=== PATIENT | male | born 1965 ===

== ENCOUNTER 2021-02-09 22:38 | Observation (INO) | payer MEDICAID ==
[~2021-02-09] VITALS: Ht 165.1 cm; Wt 109.0 kg
--- NOTE | 2021-02-09 22:54 | NUR ---
PT PRESENTS TO ED FROM [facility]. PT HAD CHEST PAIN AROUND 1200. PT STATES HE TOOK HIS NITRO, AND THAT HELPED. PT STATES HE DRINKS ALCOHOL AND FORGETS TO TAKE HIS MEDS AND HAS CHEST PAIN. PT HAD ELEVATED TROPS AND WAS SENT HERE. PT RESTING ON GURNEY AND PLACED ON CONTINUOUS MONITORING, ERP AT BEDSIDE
[2021-02-09] MEDS ORDERED: SODIUM CHLORIDE FLUSH 10ML SYR IVF ONE (23:00)
[2021-02-09 23:13] LABS: BASOPHILS % (AUTO) 1 % (0-1); EOSINOPHILS % (AUTO) 2 % (1-7); LYMPHOCYTES % (AUTO) 18 % (22-44); MEAN CORPUSCULAR HEMOGLOBIN 34.4 pg (27.5-34.5); MEAN CORPUSCULAR HGB CONC 34.8 g/dL (33.2-36.2); MONOCYTES % (AUTO) 8 % (2-9); NEUTROPHILS % (AUTO) 72 % (42-75); PLATELET COUNT 255 x10^3/uL (130-400); RED BLOOD COUNT 3.44 x10^6/uL (4.38-5.82)
[2021-02-09 23:24] LABS: ALBUMIN 2.6 g/dL (3.4-5.0); ANION GAP 5 mmol/L (5-15); CALCIUM 7.7 mg/dL (8.5-10.1); CHLORIDE 109 mmol/L (98-107); CREATININE 0.64 mg/dL (0.7-1.3)
[2021-02-09 23:27] LABS: TROPONIN I 0.116 ng/mL (0.000-0.045)
[2021-02-10] VITALS (8 sets, daily range): BP systolic 143–185; BP diastolic 68–95
--- NOTE | 2021-02-10 00:03 | NUR ---
PT RESTING ON GURNEY, DENIES NEEDS AT THIS TIME.
[2021-02-10] MEDS ORDERED: NITROGLYCERIN 0.4 MG/SPRAY SL PRN (00:30)
[2021-02-10] MEDS ORDERED: ACETAMINOPHEN 500 MG TABLET PO PRN (00:30)
[2021-02-10] MEDS ORDERED: SODIUM CHLORIDE FLUSH 10ML SYR IVF PRN (00:30)
[2021-02-10] MEDS ORDERED: morphine SULFATE 10 MG/ML, 1ML IV PRN (00:30)
[2021-02-10] MEDS ORDERED: morphine SULFATE 10 MG/ML, 1ML IVPush PRN (00:30)
[2021-02-10] MEDS ORDERED: ONDANSETRON 2MG/ML, 2ML IV PRN (00:30)
[2021-02-10] MEDS ORDERED: NITROGLYCERIN 0.4 MG BOTTLE (25 TABS) SL PRN (00:30)
--- NOTE | 2021-02-10 00:46 | NUR ---
Pt to be admitted to [facility], room 521-1. Report called to SKY Miller.
[2021-02-10] MEDS ORDERED: PLEASE ENTER ALLERGIES MC SCH (01:00)
[2021-02-10] MEDS: ENOXAPARIN 40 MG/0.4 ML SQ SCH (02:17)
[2021-02-10 04:31] LABS: ANION GAP 6 mmol/L (5-15); CALCIUM 7.7 mg/dL (8.5-10.1); CHLORIDE 108 mmol/L (98-107)
[2021-02-10 04:36] LABS: CHOL/HDL RATIO 5.7; CHOLESTEROL, TOTAL 178 mg/dL (140-239); CREATININE 0.54 mg/dL (0.7-1.3); HDL CHOL % 17 % (26-37); HDL CHOLESTEROL (DIRECT) 31 mg/dL (40-60); LDL CHOLESTEROL,CALCULATED 93 mg/dL (54-169); TRIGLYCERIDES 272 mg/dL (50-200); TROPONIN I 0.112 ng/mL (0.000-0.045); VLDL CHOLESTEROL 54 mg/dL (0-25)
[2021-02-10] MEDS: SODIUM CHLORIDE FLUSH 10ML SYR IVF SCH ×2 (08:48→20:23)
[2021-02-10] MEDS ORDERED: ATOR40TA78 PO (14:34)
[2021-02-10] MEDS ORDERED: ASPI81TA45 PO (14:34)
[2021-02-10] MEDS ORDERED: ISOS60TA36 PO (14:34)
[2021-02-10] MEDS ORDERED: LORazepam 0.5MG TABLET PO PRN (15:30)
[2021-02-10] MEDS ORDERED: LORazepam 1MG TABLET PO PRN ×2 (15:30)
[2021-02-10] MEDS ORDERED: LORazepam 2 MG/ML, 1ML IV PRN ×4 (15:30)
[2021-02-10] MEDS ORDERED: ENALAPRILAT 1.25 MG/ML, 2ML IV PRN (18:00)
[2021-02-10] MEDS ORDERED: ENALAPRILAT 1.25 MG/ML, 1ML ONE (18:12)
[2021-02-10] MEDS ORDERED: ISOSORBIDE MONONITRATE ER 60 MG TABLET PO SCH (21:00)
[2021-02-10] MEDS ORDERED: ATORVASTATIN 40 MG TABLET PO SCH (21:00)
[2021-02-10] MEDS ORDERED: hydrALAzine 20 MG/ML, 1ML IV PRN (23:30)
[2021-02-11 01:44] VITALS: BP 159/90
[2021-02-11] MEDS: ENOXAPARIN 40 MG/0.4 ML SQ SCH (02:15)
[2021-02-11] MEDS ORDERED: ASPIRIN 81 MG TABLET EC PO SCH ×2 (06:00→09:00)
[2021-02-11 07:39] VITALS: BP 167/83
[2021-02-11 09:04] VITALS: BP 172/81
[2021-02-11] MEDS: SODIUM CHLORIDE FLUSH 10ML SYR IVF SCH (09:05)
[2021-02-11 09:19] VITALS: BP 155/93
[2021-02-11 11:12] VITALS: BP 143/92
== END 2021-02-11 11:32 | disposition home or self-care (01) ==
LOC: ED 23:08 → 5SO 02-10 01:46
PROVIDERS: ADMIT Internal Medicine; ATTEND Family Medicine
DX: I24.9 Acute ischemic heart disease, unspecified (principal); E11.9 Type 2 diabetes mellitus without complications; I10 Essential (primary) hypertension; E78.5 Hyperlipidemia, unspecified; E66.01 Morbid (severe) obesity due to excess calories; E78.00 Pure hypercholesterolemia, unspecified; I25.2 Old myocardial infarction; F10.10 Alcohol abuse, uncomplicated; F17.200 Nicotine dependence, unspecified, uncomplicated; Z79.899 Other long term (current) drug therapy
CPT/HCPCS: 36415; 80048; 80061; 82040; 83880; 84484; 85025; 93005; 96372; 96374; 96375; 99284; G0378; J0360; J1650